=== PATIENT | female | born 1990 | race Caucasian/White ===

== ENCOUNTER 2018-04-10 06:57 | Inpatient (IN) | payer BC ==
[2018-04-10] MEDS ORDERED: Sodium Chloride 0.9% 10 ML Syringe FLUSH PRN (07:13)
[2018-04-10] MEDS ORDERED: Ampicillin 2 GM in Sodium Chloride 0.9% 100 ML IV ONE (07:31)
[2018-04-10] MEDS ORDERED: Oxytocin/Lactated Ringers 10 UNIT/1,000 ML BAG IV SCH ×2 (07:45→09:45)
[2018-04-10] MEDS: Lactated Ringers 1,000 ML IV SCH ×5 (07:46→12:55)
[2018-04-10] MEDS ORDERED: Bupivacaine/fentaNYL/NS 100 ML Bag EPIDUR SCH (10:45)
[2018-04-10] MEDS ORDERED: ePHEDrine 50 MG/ML SDV IVPUSH PRN (10:45)
[2018-04-10] MEDS ORDERED: fentaNYL 100 MCG/2 ML SDV EPIDUR PRN (10:45)
[2018-04-10] MEDS ORDERED: Ondansetron 4 MG/2 ML SDV IVPUSH PRN (10:45)
[2018-04-10] MEDS ORDERED: diphenhydrAMINE 50 MG/ML SDV IVPUSH PRN (10:45)
[2018-04-10] MEDS: Ampicillin 1 GM in Sodium Chloride 0.9% 100 ML IV SCH ×2 (12:14→16:48)
--- NOTE | 2018-04-10 15:52 | PCM.SN ---
- Free Text/Narrative Note: Stage I - Presented for induction of labor. Progressed to complete with overall reassuring FHT. Epidural. Stage II - of viable female at 1532. Weight pending. APGARS 8/9. Head delivered in a controlled manner over intact perineum. body and shoulders followed without difficulty. Positive cry. Cord clamped and cut. Cord blood collected. Stage III - with gentle traction on cord placenta delivered incomplete. Calcified fragment of about half of the placenta manually extracted. Pitocin initiated. Minimal bleeding. EBL 200. No laceration
--- NOTE | 2018-04-10 18:04 | PCM.PREANE ---
Preanesthetic Assessment - Procedure Proposed Procedure: GREGORIO - Anesthesia/Transfusion/Family Hx Anesthesia History: Prior Anesthesia Without Reaction Family History of Anesthesia Reaction: No Transfusion History: No Prior Transfusion(s) - Review of Systems General: No Symptoms Pulmonary: No Symptoms Cardiovascular: No Symptoms Gastrointestinal: No Symptoms Neurological: No Symptoms Other: Reports: None - Physical Assessment NPO Status Date: 04/10/18 NPO Status Time: 10:00 O2 Sat by Pulse Oximetry: 99 Respiratory Rate: 18 Vital Signs: Last Vital Signs Temp 36.8 C 04/10/18 07:13 Pulse 98 04/10/18 07:13 Resp 18 04/10/18 07:13 BP 129/78 04/10/18 07:13 Pulse Ox 99 04/10/18 07:13 Height: 1.73 m Weight: 101.151 kg ASA Class: 2 Mental Status: Alert & Oriented x3 Airway Class: Mallampati = 1 Dentition: Reports: Normal Dentition Thyro-Mental Finger Breadths: 3 Mouth Opening Finger Breadths: 3 ROM/Head Extension: Full Lungs: Clear to Auscultation, Normal Respiratory Effort Cardiovascular: Regular Rate, Regular Rhythm - Lab Values: Laboratory Last Values WBC 11.80 K/mm3 (3.98-10.04) H 04/10/18 07:20 RBC 4.39 M/mm3 (3.98-5.22) 04/10/18 07:20 Hgb 12.1 gm/L (11.2-15.7) 04/10/18 07:20 Hct 36.6 % (34.1-44.9) 04/10/18 07:20 MCV 83.4 fl (79.4-94.8) 04/10/18 07:20 MCH 27.6 pg (25.6-32.2) 04/10/18 07:20 MCHC 33.1 g/dl (32.2-35.5) 04/10/18 07:20 RDW Std Deviation 40.0 fL (36.4-46.3) 04/10/18 07:20 Plt Count 204 K/mm3 (182-369) 04/10/18 07:20 MPV 10.3 fl (9.4-12.3) 04/10/18 07:20 RPR Non-reactive (NONREACTIVE) 04/10/18 07:20 Blood Type O POSITIVE 04/10/18 07:20 Gel Antibody Screen Negative 04/10/18 07:20 - Allergies Allergies/Adverse Reactions: Allergies Allergy/AdvReac Type Severity Reaction Status Date / Time morphine AdvReac Vomiting Verified 03/10/18 14:40 - Blood Blood Available: No Product(s) Available: None - Anesthesia Plan Pre-Op Medication Ordered: None - Acknowledgements Anesthesia Type Planned: Epidural Pt an Appropriate Candidate for the Planned Anesthesia: Yes Alternatives and Risks of Anesthesia Discussed w Pt/Guardian: Yes Pt/Guardian Understands and Agrees with Anesthesia Plan: Yes PreAnesthesia Questionnaire - Past Health History Medical/Surgical History: Denies 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: , Other (See Below) Other OB/BYN History: miscarriage and 24 week demise Other Endocrine/Metabolic History: thyroiditis associated with , now resolved, and on no medications Hematologic History: Reports: Other (See Below) Other Hematologic History: boardline anemic - Past Surgical History Musculoskeletal Surgical History: Reports: Arthroscopic Procedure - SUBSTANCE USE Smoking Status *Q: Never Smoker Recreational Drug Use History: No - HOME MEDS Home Medications: Home Meds Acetaminophen with Codeine [Tylenol with Codeine #3 Tablet] 1 - 2 each PO Q6HR PRN #24 tablet 04/08/16 [Rx] - CURRENT (IN HOUSE) MEDS Current Meds: Current Medications Ibuprofen (Motrin) 600 mg PO Q6H PRN PRN Reason: Mild pain or fever Discontinued Medications Diphenhydramine HCl (Benadryl) 25 mg IVPUSH Q6H PRN PRN Reason: Pruritis Ephedrine Sulfate (Ephedrine Sulfate) 5 mg IVPUSH ASDIRECTED PRN PRN Reason: Hypotension Last Admin: 04/10/18 12:04 Dose: 5 mg Fentanyl (Sublimaze) 100 mcg EPIDUR Q3H PRN PRN Reason: Pain Last Admin: 04/10/18 11:41 Dose: 100 mcg Fentanyl/Bupivacaine HCl (Fentanyl/Bupivacaine/Ns 2 Mcg-0.125% 100 Ml) 100 ml EPIDUR ASDIRECTED MIGUEL ÁNGEL Last Admin: 04/10/18 11:42 Dose: 100 ml Lactated Ringer's (Ringers, Lactated) 1,000 mls @ 100 mls/hr IV ASDIRECTED [facility] Last Admin: 04/10/18 12:55 Dose: 100 mls/hr Ampicillin Sodium 2 gm/ Sodium (Chloride) 100 mls @ 200 mls/hr IV ONETIME ONE Stop: 04/10/18 08:00 Last Admin: 04/10/18 07:46 Dose: 200 mls/hr Ampicillin Sodium 1 gm/ Sodium (Chloride) 100 mls @ 200 mls/hr IV Q4H MIGUEL ÁNGEL Last Admin: 04/10/18 16:48 Dose: Not Given Oxytocin/Lactated Ringer's (Pitocin In Lr 10 Units/1,000 Ml) 10 unit in 1,000 mls @ 250 mls/hr IV .CONTINUOUS MIGUEL ÁNGEL; Protocol Oxytocin/Lactated Ringer's (Pitocin In Lr 10 Units/1,000 Ml) 10 unit in 1,000 mls @ 12 mls/hr IV TITRATE MIGUEL ÁNGEL; Protocol Last Titration: 04/10/18 11:16 Dose: 0 munits/min, 0 mls/hr Ondansetron HCl (Zofran) 4 mg IVPUSH ONETIME PRN PRN Reason: Nausea/Vomiting Sodium Chloride (Saline Flush) 10 ml FLUSH ASDIRECTED PRN PRN Reason: Keep Vein Open
[2018-04-10] MEDS: Ibuprofen 600 MG Tab PO PRN (20:30)
[2018-04-10] MEDS ORDERED: Bupivacaine 0.25% 10 ML SDV ONE (22:00)
[2018-04-10] MEDS ORDERED: Benzocaine/Menthol 20%-0.5% Spray 56 GM Canister TOP ONE (22:26)
[2018-04-10] MEDS ORDERED: Lanolin 100% Cream 7 GM Tube ONE (22:26)
[2018-04-10] MEDS ORDERED: Benzocaine/Menthol 20%-0.5% Spray 56 GM Canister TOP PRN (23:44)
[2018-04-10] MEDS ORDERED: Lanolin 100% Cream 7 GM Tube TOP PRN (23:45)
[2018-04-11] MEDS: Ibuprofen 600 MG Tab PO PRN ×3 (06:11→19:52)
--- NOTE | 2018-04-11 09:07 | PCM48HPAN ---
Post Anesthesia Note - EVALUATION WITHIN 48HRS OF ANESTHETIC Vital Signs in Normal Range: Yes Patient Participated in Evaluation: Yes Respiratory Function Stable: Yes Airway Patent: Yes Cardiovascular Function Stable: Yes Hydration Status Stable: Yes Pain Control Satisfactory: Yes Nausea and Vomiting Control Satisfactory: Yes Mental Status Recovered: Yes - COMMENTS/OBSERVATIONS Free Text/Narrative:: Opal is up walking around today. She denies back pain, headache, and numbness / tingling to her legs. She did have a questionable spinal catheter placement with her epidural. I spoke with her regarding the possibility of a headache and the treatment options available.
--- NOTE | 2018-04-12 07:20 | PCM.DCSUM1 ---
Discharge Summary - Discharge Data Discharge Date: 04/12/18 Discharge Disposition: Home, Self-Care 01 Condition: Good - Patient Summary/Data Hospital Course: Unremarkable labor, delivery, and course. Discharged PPD2 - Patient Instructions Diet: Usual Diet as Tolerated Activity: No Strenuous Activities Driving: May Drive Today Driving, Other: pelvic rest Showering/Bathing: May Shower Notify Provider of: Fever, Increased Pain, Swelling and Redness, Drainage, Nausea and/or Vomiting - Discharge Plan Home Medications: Home Meds Acetaminophen with Codeine [Tylenol with Codeine #3 Tablet] 1 - 2 each PO Q6HR PRN #24 tablet 04/08/16 [Rx] Referrals: Tracey Munroe MD [Primary Care Provider] - (2-6 weeks) - Discharge Summary/Plan Comment DC Time >30 min.: No - General Info Date of Service: 04/12/18 Functional Status: Reports: Pain Controlled - Review of Systems General: Reports: No Symptoms HEENT: Reports: No Symptoms Pulmonary: Reports: No Symptoms Cardiovascular: Reports: No Symptoms Gastrointestinal: Reports: No Symptoms Genitourinary: Reports: No Symptoms Musculoskeletal: Reports: No Symptoms Skin: Reports: No Symptoms Neurological: Reports: No Symptoms Psychiatric: Reports: No Symptoms - Patient Data Vitals - Most Recent: Last Vital Signs Temp 36.7 C 04/12/18 01:56 Pulse 61 04/12/18 01:56 Resp 14 04/11/18 15:31 BP 100/73 04/12/18 01:56 Pulse Ox 98 04/12/18 01:56 Weight - Most Recent: 101.151 kg Med Orders - Current: Current Medications Benzocaine/Menthol (Dermoplast Pain Relief [place]) 0 gm TOP ASDIRECTED PRN PRN Reason: Pain Emollient Ointment (Lansinoh Hpa) 0 gm TOP ASDIRECTED PRN PRN Reason: Other Last Admin: 04/11/18 03:12 Dose: 1 tube Ibuprofen (Motrin) 600 mg PO Q6H PRN PRN Reason: Mild pain or fever Last Admin: 04/11/18 19:52 Dose: 600 mg Discontinued Medications Benzocaine/Menthol (Dermoplast Pain Relief [place]) Confirm Administered Dose 56 gm TOP .STK-MED ONE Stop: 04/10/18 22:27 Last Admin: 04/10/18 22:30 Dose: 1 canister Bupivacaine HCl (Sensorcaine-Mpf 0.25%) 10 ml .ROUTE .STK-StarGreetz ONE Stop: 04/10/18 22:01 Diphenhydramine HCl (Benadryl) 25 mg IVPUSH Q6H PRN PRN Reason: Pruritis Emollient Ointment (Lansinoh Hpa) Confirm Administered Dose 7 gm .ROUTE .[place]- Star[place]reet[place] ONE Stop: 04/10/18 22:27 Last Admin: 04/11/18 03:12 Dose: Not Given Ephedrine Sulfate (Ephedrine Sulfate) 5 mg IVPUSH ASDIRECTED PRN PRN Reason: Hypotension Last Admin: 04/10/18 12:04 Dose: 5 mg Fentanyl (Sublimaze) 100 mcg EPIDUR Q3H PRN PRN Reason: Pain Last Admin: 04/10/18 11:41 Dose: 100 mcg Fentanyl/Bupivacaine HCl (Fentanyl/Bupivacaine/Ns 2 Mcg-0.125% 100 Ml) 100 ml EPIDUR ASDIRECTED MIGUEL ÁNGEL Last Admin: 04/10/18 11:42 Dose: 100 ml Lactated Ringer's (Ringers, Lactated) 1,000 mls @ 100 mls/hr IV ASDIRECTED MIGUEL ÁNGEL Last Admin: 04/10/18 12:55 Dose: 100 mls/hr Ampicillin Sodium 2 gm/ Sodium (Chloride) 100 mls @ 200 mls/hr IV ONETIME ONE Stop: 04/10/18 08:00 Last Admin: 04/10/18 07:46 Dose: 200 mls/hr Ampicillin Sodium 1 gm/ Sodium (Chloride) 100 mls @ 200 mls/hr IV Q4H MIGUEL ÁNGEL Last Admin: 04/10/18 16:48 Dose: Not Given Oxytocin/Lactated Ringer's (Pitocin In Lr 10 Units/1,000 Ml) 10 unit in 1,000 mls @ 250 mls/hr IV .CONTINUOUS MIGUEL ÁNGEL; Protocol Oxytocin/Lactated Ringer's (Pitocin In Lr 10 Units/1,000 Ml) 10 unit in 1,000 mls @ 12 mls/hr IV TITRATE MIGUEL ÁNGEL; Protocol Last Titration: 04/10/18 11:16 Dose: 0 munits/min, 0 mls/hr Ondansetron HCl (Zofran) 4 mg IVPUSH ONETIME PRN PRN Reason: Nausea/Vomiting Sodium Chloride (Saline Flush) 10 ml FLUSH ASDIRECTED PRN PRN Reason: Keep Vein Open - Exam General: Reports: Alert, Oriented HEENT: Reports: Pupils Equal, Pupils Reactive, EOMI, Mucous Membr. Moist/[place] Neck: Reports: Supple Lungs: Reports: Clear to Auscultation, Normal Respiratory Effort Cardiovascular: Reports: Regular Rate, Regular Rhythm GI/Abdominal Exam: Normal Bowel Sounds, Soft, Non-Tender, No Organomegaly, No Distention, No Abnormal Bruit, No Mass, Pelvis Stable (Female) Exam: Normal External Exam, Normal Speculum Exam, Normal Bimanual Exam Back Exam: Reports: Normal Inspection, Full Range of Motion Extremities: Normal Inspection, Normal Range of Motion, Non-Tender, No Pedal Edema, Normal Capillary Refill Skin: Reports: Warm, Dry, Intact Wound/Incisions: Reports: Healing Well Neurological: Reports: No New Focal Deficit Psy/Mental Status: Reports: Alert, Normal Affect, Normal Mood
[2018-04-12] MEDS: Ibuprofen 600 MG Tab PO PRN (07:40)
[2018-04-12 11:07] VITALS: BP 112/59
== END 2018-04-12 10:17 | disposition home or self-care (01) | DRG 541 ==
LOC: JD.OB 06:57 → OBSVTOIN 15:32 → JD.OB 15:33
PROVIDERS: ADMIT Obstetrics & Gynecology; ATTEND Obstetrics & Gynecology
PROC: 10D17Z9 Manual Extraction of Products of Conception, Retained, Via Natural or Artificial Opening (ICD-10-PCS; principal; 2018-04-10)
PROC: 10E0XZZ Delivery of Products of Conception, External Approach (ICD-10-PCS; principal; 2018-04-10)
PROC: 00HU33Z Insertion of Infusion Device into Spinal Canal, Percutaneous Approach (ICD-10-PCS; 2018-04-10)
PROC: 3E0R3BZ Introduction of Anesthetic Agent into Spinal Canal, Percutaneous Approach (ICD-10-PCS; 2018-04-10)
DX: O72.2 Delayed and secondary postpartum hemorrhage (principal); Z37.0 Single live birth; Z3A.39 39 weeks gestation of pregnancy
CPT/HCPCS: 36415; 59025; 59409; 85027; 86592; 86850; 86900; 86901; A9270-GY; J0290; J2590; J3010; J7030; J7120

== ENCOUNTER 2019-11-17 08:11 | Inpatient (IN) | payer OTHER ==
[2019-11-17] MEDS ORDERED: Ampicillin 2 GM in Sodium Chloride 0.9% 100 ML IV ONE (11:56)
[2019-11-17] MEDS ORDERED: Ondansetron 4 MG/2 ML SDV IVPUSH PRN (11:56)
[2019-11-17] MEDS ORDERED: Nalbuphine 10 MG/ML Syringe IVPUSH PRN (11:56)
[2019-11-17] MEDS ORDERED: Sodium Chloride 0.9% 10 ML Syringe FLUSH PRN (11:56)
[2019-11-17] MEDS ORDERED: Oxytocin/Lactated Ringers 20 UNIT/1,000 ML BAG IV SCH (12:00)
[2019-11-17] MEDS: Lactated Ringers 1,000 ML IV SCH ×3 (12:28→17:33)
--- NOTE | 2019-11-17 12:44 | PCM.HP.2 ---
<Isaak Salazar - Last Filed: 11/17/19 13:52> H&P History of Present Illness - General Date of Service: 11/17/19 (initial presentation ~0930, H&P completed beginning around 1300) Admit Problem/Dx: Admission Diagnosis/Problem Admission Diagnosis/Problem Source of Information: Patient History Limitations: Reports: No Limitations - History of Present Illness Initial Comments - Free Text/Narative: Ms. Opal Hassan is a pleasant 28 yoF who is O+ and (2 girls at home, 1 lost at 27 weeks due to intrauterine demise, 1 miscarriage at 10 weeks) who presented to the ED approx around 0900 having felt some contractions. On clinic appointment (11/15/2019), patient reports being 4-5 cm dilated and 70% effacement and GBS (+). Upon initial presentation, she was escorted to L&D and an amniosure, UA w/ micro and culture and pelvic exam per RN. Amniosure was negative via lab and she measured around 4 cm dilated, 70% effaced, firm, long and vertex not appreciated by RN. Plan to re-evaluate at 1200 and pending progress, will start IV, ampicillin IV and admission process. Pending reevaluation by RN at 1200, pt was further along approx [address] Verdugo and plan will be to keep her here in L&D. Upon discussing with patient she relates the following for an HPI Ms. Hassan started noticing contractions around 0400 on 11/17/2019 and came to L &D. She reports the contractions seemed to calm down and get better but after some walking around and bouncing on the ball the patient endorses the contractions coming back. pt reports having them every 3-4 min now describing them as tightness in the front and back labor pains and getting harder. patient reports them being at a 7/10 in terms of pain right now. pt admits clear, "mucousy" discharge in addition to more than usual clear discharge originally. In previous pregnancies, she admits to having back labor pains. Pt endorses wanting an epidural. also present in the room. 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 (See Below) Other OB/BYN History: miscarriage and 24 week demise Other Endocrine/Metabolic History: thyroiditis associated with , now resolved, and on no medications Hematologic History: Reports: Other (See Below) Other Hematologic History: boardline anemic - Past Surgical History Musculoskeletal Surgical History: Reports: Arthroscopic Procedure Social & Family History - Family History Family Medical History: Noncontributory - Living Situation & Occupation Living situation: Reports: , with Family Occupation: Employed Exam - Exam General: Alert, Oriented (in no NAD) HEENT: Conjunctiva Clear, EOMI, Hearing Intact, Nares Patent, Pupils Equal, Pupils Reactive Neck: Supple, Trachea Midline Lungs: Clear to Auscultation, Normal Respiratory Effort Cardiovascular: Regular Rate, Regular Rhythm, Normal S1, Normal S2, Other (with no M,R,G on auscultation) Back Exam: Normal Inspection Extremities: Pedal Edema Skin: Warm, Dry, Intact Neuro Extensive - Mental Status: Alert, Oriented x3, Normal Mood/Affect, Normal Cognition, Memory Intact Psychiatric: Alert, Normal Affect, Normal Mood - Patient Data Lab Results Last 24 hrs: Laboratory Results - last 24 hr 11/17/19 11/17/19 Range/Units 08:35 09:10 Urine Color Light yellow (Yellow) Urine Appearance Clear (Clear) Urine pH 7.0 (5.0-8.0) Ur Specific [place] 1.015 (1.005-1.030) Urine Protein Negative (Negative) Urine Glucose (UA) Negative (Negative) Urine Ketones Negative (Negative) Urine Occult Blood Negative (Negative) Urine Nitrite Negative (Negative) Urine Bilirubin Negative (Negative) Urine Urobilinogen 0.2 (0.2-1.0) Ur Leukocyte Esterase Trace H (Negative) Urine RBC 0-5 (0-5) /hpf Urine WBC 5-10 H (0-5) /hpf Ur Squamous Epith Cells 0-5 (0-5) /hpf Urine Bacteria Few (FEW) /hpf Urine Mucus Few (FEW) /hpf Membrane Rupture Negative Result Diagrams: 11/17/19 12:57 Orders Last 24hrs: Active Orders 24 hr Category Date Time Status Patient Status [ADT] Routine ADT 11/17/19 11:56 Active Activity as Tolerated [RC] PFP Care 11/17/19 11:56 Active Communication Order [RC] ASDIRECTED Care 11/17/19 11:56 Active Heart Tones [RC] ASDIRECTED Care 11/17/19 11:56 Active Non Stress Test [RC] PER UNIT ROUTINE Care 11/17/19 08:36 Active Notify Provider [RC] PFP Care 11/17/19 11:56 Active Notify Provider [RC] PRN Care 11/17/19 11:56 Active Peripheral IV Care [RC] . DIRECTED Care 11/17/19 11:56 Active Pump Management, Intrathecal [RC] ASDIRECTED Care 11/17/19 11:58 Active Urinary Catheter Assessment [RC] ASDIRECTED Care 11/17/19 11:56 Active Vital Signs [RC] PER UNIT ROUTINE Care 11/17/19 08:36 Active Vital Signs [RC] PER UNIT ROUTINE Care 11/17/19 11:56 Active Regular Diet [DIET] Diet 11/17/19 Breakfast Active CBC WITH AUTO DIFF [HEME] Stat Lab 11/17/19 11:56 Ordered CULTURE URINE [RM] Stat Lab 11/17/19 09:10 Received RAPID PLASMA REAGIN,RPR [CHEM] Routine Lab 11/17/19 11:56 Ordered TYPE AND SCREEN [BBK] Stat Lab 11/17/19 11:56 Ordered Ampicillin 1 gm Med 11/17/19 16:00 Active Sodium Chloride 0.9% [Normal Saline] 100 ml IV Q4H Lactated Ringers [Ringers, Lactated] 1,000 ml Med 11/17/19 12:00 Active IV ASDIRECTED Nalbuphine [Nubain] Med 11/17/19 11:56 Active 10 mg IVPUSH Q2H PRN Ondansetron [Zofran] Med 11/17/19 11:56 Active 4 mg IVPUSH Q4H PRN Oxytocin/Lactated Ringers [Pitocin in LR 20 Units/1,000 Med 11/17/19 12:00 Active ML] 20 unit in 1,000 ml IV .CONTINUOUS Sodium Chloride 0.9% [Saline Flush] Med 11/17/19 11:56 Active 10 ml FLUSH ASDIRECTED PRN Electronic Heart Tones Ext w TOCO [WOMSER] Oth 11/17/19 11:56 Ordered Routine Electronic Heart Tones Internal [WOMSER] Per Unit Oth 11/17/19 11:56 Ordered Routine Peripheral IV Insertion Adult [OM.PC] Routine Oth 11/17/19 11:56 Ordered Resuscitation Status Routine Resus Stat 11/17/19 08:35 Ordered Medication Orders Lactated Ringer's (Ringers, Lactated) 1,000 mls @ 100 mls/hr IV ASDIRECTED MIGUEL ÁNGEL Last Admin: 11/17/19 12:28 Dose: 100 mls/hr Oxytocin/Lactated Ringer's (Pitocin In Lr 20 Units/1,000 Ml) 20 unit in 1,000 mls @ 500 mls/hr IV .CONTINUOUS MIGUEL ÁNGEL Ampicillin Sodium 1 gm/ Sodium (Chloride) 100 mls @ 200 mls/hr IV Q4H MIGUEL ÁNGEL Nalbuphine HCl (Nubain) 10 mg IVPUSH Q2H PRN PRN Reason: Pain Ondansetron HCl (Zofran) 4 mg IVPUSH Q4H PRN PRN Reason: Nausea/Vomiting Sodium Chloride (Saline Flush) 10 ml FLUSH ASDIRECTED PRN PRN Reason: Keep Vein Open Review of Systems (Master) - Review of Systems Constitutional: Reports: No Symptoms Eyes: Reports: other (pt admits with this noticing her vision has been worse but not affecting her actually seeing thigns, daily activites) ENT: Reports: other (deneis ears, nose discharge or pain. denies trouble swallowing, hoarseness, neck pain or decreased ROM. Pt does admit to "being on the tail end of a cold and is much better now") Respiratory: Reports: No Symptoms Cardiovascular: Reports: No Symptoms Endocrine: Reports: No Symptoms, Other (Pt admits after her first having post- thyroid issues. They were only transient and resolved several weeks post-.) GI/Abdominal: Reports: No Symptoms : Reports: No Symptoms, Other (See HPI) Musculoskeletal: Reports: No Symptoms Skin: Reports: No Symptoms Neurological: Reports: No Symptoms Psychiatric: Reports: No Symptoms Hematologic/Lymphatic: Reports: No Symptoms Immunologic: Reports: No Symptoms <Garrick Verdugo - Last Filed: 11/17/19 13:54> H&P History of Present Illness - General Admit Problem/Dx: Admission Diagnosis/Problem Admission Diagnosis/Problem H&P Review of Systems - Review of Systems: Review Of Systems: See Below General: Reports: No Symptoms HEENT: Reports: No Symptoms Pulmonary: Reports: No Symptoms Cardiovascular: Reports: No Symptoms Gastrointestinal: Reports: No Symptoms Genitourinary: Reports: No Symptoms Musculoskeletal: Reports: No Symptoms Skin: Reports: No Symptoms Psychiatric: Reports: No Symptoms Neurological: Reports: No Symptoms Hematologic/Lymphatic: Reports: No Symptoms Immunologic: Reports: No Symptoms Exam - Exam Exam: See Below - Vital Signs Vital Signs: Last Vital Signs Temp 97.7 F 11/17/19 12:57 Pulse 76 11/17/19 12:57 Resp 16 11/17/19 12:57 BP 112/69 11/17/19 12:57 Pulse Ox 100 11/17/19 12:57 - Patient Data Lab Results Last 24 hrs: Laboratory Results - last 24 hr 11/17/19 11/17/19 11/17/19 Range/Units 08:35 09:10 12:57 WBC 12.83 H (3.98-10.04) K/mm3 RBC 4.59 (3.98-5.22) M/mm3 Hgb 12.8 (11.2-15.7) gm/dl Hct 38.3 (34.1-44.9) % MCV 83.4 (79.4-94.8) fl MCH 27.9 (25.6-32.2) pg MCHC 33.4 (32.2-35.5) g/dl RDW Std Deviation 39.6 (36.4-46.3) fL Plt Count 214 (182-369) K/mm3 MPV 10.1 (9.4-12.3) fl Neut % (Auto) 74.4 H (34.0-71.1) % Lymph % (Auto) 20.6 (19.3-51.7) % [place] % (Auto) 3.4 L (4.7-12.5) % Eos % (Auto) 1.0 (0.7-5.8) Baso % (Auto) 0.2 (0.1-1.2) % Neut # (Auto) 9.56 H (1.56-6.13) K/mm3 Lymph # (Auto) 2.64 (1.18-3.74) K/mm3 [place] # (Auto) 0.43 H (0.24-0.36) K/mm3 Eos # (Auto) 0.13 (0.04-0.36) K/mm3 Baso # (Auto) 0.02 (0.01-0.08) K/mm3 Urine Color Light yellow (Yellow) Urine Appearance Clear (Clear) Urine pH 7.0 (5.0-8.0) Ur Specific [place] 1.015 (1.005-1.030) Urine Protein Negative (Negative) Urine Glucose (UA) Negative (Negative) Urine Ketones Negative (Negative) Urine Occult Blood Negative (Negative) Urine Nitrite Negative (Negative) Urine Bilirubin Negative (Negative) Urine Urobilinogen 0.2 (0.2-1.0) Ur Leukocyte Esterase Trace H (Negative) Urine RBC 0-5 (0-5) /hpf Urine WBC 5-10 H (0-5) /hpf Ur Squamous Epith Cells 0-5 (0-5) /hpf Urine Bacteria Few (FEW) /hpf Urine Mucus Few (FEW) /hpf Membrane Rupture Negative Blood Type Gel Antibody Screen 11/17/19 Range/Units 12:57 WBC (3.98-10.04) K/mm3 RBC (3.98-5.22) M/mm3 Hgb (11.2-15.7) gm/dl Hct (34.1-44.9) % MCV (79.4-94.8) fl MCH (25.6-32.2) pg MCHC (32.2-35.5) g/dl RDW Std Deviation (36.4-46.3) fL Plt Count (182-369) K/mm3 MPV (9.4-12.3) fl Neut % (Auto) (34.0-71.1) % Lymph % (Auto) (19.3-51.7) % [place] % (Auto) (4.7-12.5) % Eos % (Auto) (0.7-5.8) Baso % (Auto) (0.1-1.2) % Neut # (Auto) (1.56-6.13) K/mm3 Lymph # (Auto) (1.18-3.74) K/mm3 Drew # (Auto) (0.24-0.36) K/mm3 Eos # (Auto) (0.04-0.36) K/mm3 Baso # (Auto) (0.01-0.08) K/mm3 Urine Color (Yellow) Urine Appearance (Clear) Urine pH (5.0-8.0) Ur Specific [place] (1.005-1.030) Urine Protein (Negative) Urine Glucose (UA) (Negative) Urine Ketones (Negative) Urine Occult Blood (Negative) Urine Nitrite (Negative) Urine Bilirubin (Negative) Urine Urobilinogen (0.2-1.0) Ur Leukocyte Esterase (Negative) Urine RBC (0-5) /hpf Urine WBC (0-5) /hpf Ur Squamous Epith Cells (0-5) /hpf Urine Bacteria (FEW) /hpf Urine Mucus (FEW) /hpf Membrane Rupture Blood Type O POSITIVE Gel Antibody Screen Negative Result Diagrams: 11/17/19 12:57 Sepsis Event Note - Focused Exam Vital Signs: Vital Signs Temp Pulse Resp BP Pulse Ox 11/17/19 12:57 97.7 F 76 16 112/69 100 Date Exam was Performed: 11/17/19 Time Exam was Performed: 13:53 - Problem List (1) 38 weeks gestation of SNOMED Code(s): 23475556 ICD Code: Z3A.38 - 38 WEEKS GESTATION OF Status: Acute Current Visit: Yes (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 SNOMED Code(s): 3592535808605 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 DIRECTED Care 11/17/19 11:56 Active Pump Management, Intrathecal [RC] ASDIRECTED Care 11/17/19 11:58 Active Urinary Catheter Assessment [RC] ASDIRECTED Care 11/17/19 11:56 Active Vital Signs [RC] PER UNIT ROUTINE Care 11/17/19 08:36 Active Vital Signs [RC] PER UNIT ROUTINE Care 11/17/19 11:56 Active Regular Diet [DIET] Diet 11/17/19 Breakfast Active CULTURE URINE [RM] Stat Lab 11/17/19 09:10 Received PATIENT RETYPE [BBK] Routine Lab 11/17/19 13:21 Ordered RAPID PLASMA REAGIN,RPR [CHEM] Routine Lab 11/17/19 12:57 Received Ampicillin 1 gm Med 11/17/19 16:00 Active Sodium Chloride 0.9% [Normal Saline] 100 ml IV Q4H Lactated Ringers [Ringers, Lactated] 1,000 ml Med 11/17/19 12:00 Active IV ASDIRECTED Nalbuphine [Nubain] Med 11/17/19 11:56 Active 10 mg IVPUSH Q2H PRN Ondansetron [Zofran] Med 11/17/19 11:56 Active 4 mg IVPUSH Q4H PRN Oxytocin/Lactated Ringers [Pitocin in LR 20 Units/1,000 Med 11/17/19 12:00 Active ML] 20 unit in 1,000 ml IV .CONTINUOUS Sodium Chloride 0.9% [Saline Flush] Med 11/17/19 11:56 Active 10 ml FLUSH ASDIRECTED PRN Electronic Heart Tones Ext w TOCO [WOMSER] Oth 11/17/19 11:56 Ordered Routine Electronic Heart Tones Internal [WOMSER] Per Unit Oth 11/17/19 11:56 Ordered Routine Peripheral IV Insertion Adult [OM.PC] Routine Oth 11/17/19 11:56 Ordered Resuscitation Status Routine Resus Stat 11/17/19 08:35 Ordered Medication Orders Lactated Ringer's (Ringers, Lactated) 1,000 mls @ 100 mls/hr IV ASDIRECTED MIGUEL ÁNGEL Last Admin: 11/17/19 12:28 Dose: 100 mls/hr Oxytocin/Lactated Ringer's (Pitocin In Lr 20 Units/1,000 Ml) 20 unit in 1,000 mls @ 500 mls/hr IV .CONTINUOUS MIGUEL ÁNGEL Ampicillin Sodium 1 gm/ Sodium (Chloride) 100 mls @ 200 mls/hr IV Q4H MIGUEL ÁNGEL Nalbuphine HCl (Nubain) 10 mg IVPUSH Q2H PRN PRN Reason: Pain Ondansetron HCl (Zofran) 4 mg IVPUSH Q4H PRN PRN Reason: Nausea/Vomiting Sodium Chloride (Saline Flush) 10 ml FLUSH ASDIRECTED PRN PRN Reason: Keep Vein Open - Mortality Measure Prognosis:: Good
--- NOTE | 2019-11-17 13:55 | PCM.SN ---
- Free Text/Narrative Note: Amniotomy performed at 1335 hrs. clear fluid cervix 5 cm dilated 70% effaced soft posterior cephalic presentation -1 station category 1 heart rate before and after amniotomy.
[2019-11-17] MEDS ORDERED: diphenhydrAMINE 50 MG/ML SDV IVPUSH PRN (14:55)
[2019-11-17] MEDS ORDERED: fentaNYL/Bupivacaine/NS 2 MCG-0.125% 250 ML EPIDUR PRN (14:55)
[2019-11-17] MEDS ORDERED: fentaNYL 100 MCG/2 ML SDV EPIDUR PRN (14:55)
[2019-11-17] MEDS ORDERED: ePHEDrine 50 MG/ML SDV IVPUSH PRN (14:55)
[2019-11-17] MEDS ORDERED: Ampicillin 1 GM in Sodium Chloride 0.9% 100 ML IV SCH (16:00)
--- NOTE | 2019-11-17 16:38 | PCM.SN ---
- Free Text/Narrative Note: Epidural in place, good relief. Cervix 5-6 cm, 70%, soft, posterior, vertex -1. Cat I FHR. Good reactivity. Begin Augmentation with Pitocin.
--- NOTE | 2019-11-17 16:47 | PCM.PREANE ---
Preanesthetic Assessment - Procedure Proposed Procedure: Continuous Labor Epidural - Anesthesia/Transfusion/Family Hx Family History of Anesthesia Reaction: No Transfusion History: No Prior Transfusion(s) - Review of Systems General: No Symptoms Pulmonary: No Symptoms Cardiovascular: No Symptoms Gastrointestinal: No Symptoms Neurological: No Symptoms Other: Reports: None - Physical Assessment NPO Status Date: 11/17/19 (Full stomach) Vital Signs: Last Vital Signs Temp 36.5 C 11/17/19 12:57 Pulse 76 11/17/19 12:57 Resp 16 11/17/19 12:57 BP 112/69 11/17/19 12:57 Pulse Ox 100 11/17/19 12:57 Height: 5 ft 8 in Weight: 100.244 kg Mental Status: Alert & Oriented x3 Airway Class: Mallampati = 1 Dentition: Reports: Normal Dentition ROM/Head Extension: Full Lungs: Clear to Auscultation, Normal Respiratory Effort Cardiovascular: Regular Rate, Regular Rhythm - Lab Values: Laboratory Last Values WBC 12.83 K/mm3 (3.98-10.04) H 11/17/19 12:57 RBC 4.59 M/mm3 (3.98-5.22) 11/17/19 12:57 Hgb 12.8 gm/dl (11.2-15.7) 11/17/19 12:57 Hct 38.3 % (34.1-44.9) 11/17/19 12:57 MCV 83.4 fl (79.4-94.8) 11/17/19 12:57 MCH 27.9 pg (25.6-32.2) 11/17/19 12:57 MCHC 33.4 g/dl (32.2-35.5) 11/17/19 12:57 RDW Std Deviation 39.6 fL (36.4-46.3) 11/17/19 12:57 Plt Count 214 K/mm3 (182-369) 11/17/19 12:57 MPV 10.1 fl (9.4-12.3) 11/17/19 12:57 Neut % (Auto) 74.4 % (34.0-71.1) H 11/17/19 12:57 Lymph % (Auto) 20.6 % (19.3-51.7) 11/17/19 12:57 [place] % (Auto) 3.4 % (4.7-12.5) L 11/17/19 12:57 Eos % (Auto) 1.0 (0.7-5.8) 11/17/19 12:57 Baso % (Auto) 0.2 % (0.1-1.2) 11/17/19 12:57 Neut # (Auto) 9.56 K/mm3 (1.56-6.13) H 11/17/19 12:57 Lymph # (Auto) 2.64 K/mm3 (1.18-3.74) 11/17/19 12:57 [place] # (Auto) 0.43 K/mm3 (0.24-0.36) H 11/17/19 12:57 Eos # (Auto) 0.13 K/mm3 (0.04-0.36) 11/17/19 12:57 Baso # (Auto) 0.02 K/mm3 (0.01-0.08) 11/17/19 12:57 Urine Color Light yellow (Yellow) 11/17/19 09:10 Urine Appearance Clear (Clear) 11/17/19 09:10 Urine pH 7.0 (5.0-8.0) 11/17/19 09:10 Ur Specific [place] 1.015 (1.005-1.030) 11/17/19 09:10 Urine Protein Negative (Negative) 11/17/19 09:10 Urine Glucose (UA) Negative (Negative) 11/17/19 09:10 Urine Ketones Negative (Negative) 11/17/19 09:10 Urine Occult Blood Negative (Negative) 11/17/19 09:10 Urine Nitrite Negative (Negative) 11/17/19 09:10 Urine Bilirubin Negative (Negative) 11/17/19 09:10 Urine Urobilinogen 0.2 (0.2-1.0) 11/17/19 09:10 Ur Leukocyte Esterase Trace (Negative) H 11/17/19 09:10 Urine RBC 0-5 /hpf (0-5) 11/17/19 09:10 Urine WBC 5-10 /hpf (0-5) H 11/17/19 09:10 Ur Squamous Epith Cells 0-5 /hpf (0-5) 11/17/19 09:10 Urine Bacteria Few /hpf (FEW) 11/17/19 09:10 Urine Mucus Few /hpf (FEW) 11/17/19 09:10 Membrane Rupture Negative 11/17/19 08:35 Blood Type O POSITIVE 11/17/19 12:57 Gel Antibody Screen Negative 11/17/19 12:57 - Allergies Allergies/Adverse Reactions: Allergies Allergy/AdvReac Type Severity Reaction Status Date / Time morphine AdvReac Vomiting Verified 03/10/18 14:40 - Acknowledgements Anesthesia Type Planned: Epidural Pt an Appropriate Candidate for the Planned Anesthesia: Yes Alternatives and Risks of Anesthesia Discussed w Pt/Guardian: Yes Pt/Guardian Understands and Agrees with Anesthesia Plan: Yes PreAnesthesia Questionnaire - Past Health History Medical/Surgical History: Denies 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: , 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 (See Below) Other OB/BYN History: miscarriage and 24 week demise Other Endocrine/Metabolic History: thyroiditis associated with , now resolved, and on no medications Hematologic History: Reports: Other (See Below) Other Hematologic History: boardline anemic - Past Surgical History Musculoskeletal Surgical History: Reports: Arthroscopic Procedure - SUBSTANCE USE Smoking Status *Q: Never Smoker Second Hand Smoke Exposure: No Recreational Drug Use History: No - HOME MEDS Home Medications: Home Meds Pnv No.95/Ferrous Fum/Folic AC [ Vitamin Tablet] 1 each PO DAILY [History] - CURRENT (IN HOUSE) MEDS Current Meds: Current Medications Diphenhydramine HCl (Benadryl) 25 mg IVPUSH Q6H PRN PRN Reason: pruritis Ephedrine Sulfate (Ephedrine Sulfate) 5 mg IVPUSH ASDIRECTED PRN PRN Reason: Hypotension Fentanyl (Sublimaze) 100 mcg EPIDUR Q3H PRN PRN Reason: Pain Last Admin: 11/17/19 16:17 Dose: 100 mcg Fentanyl/Bupivacaine HCl (Fentanyl/Bupivacaine/Ns 2 Mcg-0.125% 250 Ml) 250 ml EPIDUR CONTINUOUS PRN PRN Reason: Pain Last Admin: 11/17/19 16:18 Dose: 250 ml Lactated Ringer's (Ringers, Lactated) 1,000 mls @ 100 mls/hr IV ASDIRECTED MIGUEL ÁNGEL Last Admin: 11/17/19 16:17 Dose: 999 mls/hr Oxytocin/Lactated Ringer's (Pitocin In Lr 20 Units/1,000 Ml) 20 unit in 1,000 mls @ 500 mls/hr IV .CONTINUOUS MIGUEL ÁNGEL Ampicillin Sodium 1 gm/ Sodium (Chloride) 100 mls @ 200 mls/hr IV Q4H MIGUEL ÁNGEL Last Admin: 11/17/19 16:17 Dose: 200 mls/hr Nalbuphine HCl (Nubain) 10 mg IVPUSH Q2H PRN PRN Reason: Pain Ondansetron HCl (Zofran) 4 mg IVPUSH Q4H PRN PRN Reason: Nausea/Vomiting Sodium Chloride (Saline Flush) 10 ml FLUSH ASDIRECTED PRN PRN Reason: Keep Vein Open Discontinued Medications Ampicillin Sodium 2 gm/ Sodium (Chloride) 100 mls @ 200 mls/hr IV ONETIME ONE Stop: 11/17/19 12:25 Last Admin: 11/17/19 12:29 Dose: 200 mls/hr
--- NOTE | 2019-11-17 16:53 | PCM.SN ---
- Free Text/Narrative Note: Patient still having low back pain despite epidural. Dosed with 10 mL 0.25% marcaine and 100 mcg fentanyl in divided doses via the epidural catheter. Positioned EDMAR. Also increased rate from 10 mL/hour to 12 mL/hour. Re-educated patient about use of PCEA. Patient verbalizes understanding. Reassessed after 20 minutes and patient is now comfortable.
[2019-11-17] MEDS ORDERED: Oxytocin/Lactated Ringers 10 UNIT/1,000 ML BAG IV SCH (17:00)
[2019-11-17] MEDS ORDERED: Bupivacaine 0.25% 10 ML SDV ONE (19:00)
--- NOTE | 2019-11-17 19:03 | PCM.DEL ---
L & D Note - General Info Date of Service: 11/17/19 Mother's Due Date: 12/01/19 - Delivery Note Labor: Spontaneous, Augmented by ARM, Augmented by Oxytocin Delivery Outcome: Livebirth (Female liveborn 1840 hrs. Tuesday11/17/2019 left occiput anterior under epidural anesthesia over no episiotomy and no laceration Apgars 8/8 at one and 5 minutes respectively 2760 g/6 pounds 1 ounce) Delivery Method: Spontaneous Vaginal Delivery-Single Infant Delivery Mode: Spontaneous Presentation: Left Occiput Anterior (EILEEN) Nuchal Cord: None Prep: Povidone-Iodine (Betadine Anesthesia Type: Combined Spinal Epidural Amniotic Fluid Description: Clear Episiotomy Type: None Laceration: None Placenta: Intact, Spontaneous (1842 hrs. Tuesday11/17/2025 eccentric cord insertion) Cord: 3 Vessels Estimated Blood Loss: 250 Resuscitation Needed: No : Suctioned, Bulb Syringe, Stimulated, Warmed, [place] Used, Warmer Used Provider: Garrick Verdugo Score 1 min: 8 Score 5 min: 8 - General Info Date of Service: 11/17/19 Functional Status: Reports: Pain Controlled - Review of Systems General: Reports: No Symptoms HEENT: Reports: No Symptoms Pulmonary: Reports: No Symptoms Cardiovascular: Reports: No Symptoms Gastrointestinal: Reports: No Symptoms Genitourinary: Reports: No Symptoms Musculoskeletal: Reports: No Symptoms Skin: Reports: No Symptoms Neurological: Reports: No Symptoms Psychiatric: Reports: No Symptoms - Patient Data Vitals - Most Recent: Last Vital Signs Temp 97.7 F 11/17/19 12:57 Pulse 76 11/17/19 12:57 Resp 16 11/17/19 12:57 BP 112/69 11/17/19 12:57 Pulse Ox 100 11/17/19 12:57 Weight - Most Recent: 221 lb I&O - Last 24 Hours: Intake & Output 11/17/19 11/17/19 11/17/19 06:59 14:59 22:59 Intake Total 120 Balance 120 Lab Results Last 24 Hours: Laboratory Results - last 24 hr 11/17/19 11/17/19 11/17/19 Range/Units 08:35 09:10 12:57 WBC 12.83 H (3.98-10.04) K/mm3 RBC 4.59 (3.98-5.22) M/mm3 Hgb 12.8 (11.2-15.7) gm/dl Hct 38.3 (34.1-44.9) % MCV 83.4 (79.4-94.8) fl MCH 27.9 (25.6-32.2) pg MCHC 33.4 (32.2-35.5) g/dl RDW Std Deviation 39.6 (36.4-46.3) fL Plt Count 214 (182-369) K/mm3 MPV 10.1 (9.4-12.3) fl Neut % (Auto) 74.4 H (34.0-71.1) % Lymph % (Auto) 20.6 (19.3-51.7) % [place] % (Auto) 3.4 L (4.7-12.5) % Eos % (Auto) 1.0 (0.7-5.8) Baso % (Auto) 0.2 (0.1-1.2) % Neut # (Auto) 9.56 H (1.56-6.13) K/mm3 Lymph # (Auto) 2.64 (1.18-3.74) K/mm3 [place] # (Auto) 0.43 H (0.24-0.36) K/mm3 Eos # (Auto) 0.13 (0.04-0.36) K/mm3 Baso # (Auto) 0.02 (0.01-0.08) K/mm3 Urine Color Light yellow (Yellow) Urine Appearance Clear (Clear) Urine pH 7.0 (5.0-8.0) Ur Specific [place] 1.015 (1.005-1.030) Urine Protein Negative (Negative) Urine Glucose (UA) Negative (Negative) Urine Ketones Negative (Negative) Urine Occult Blood Negative (Negative) Urine Nitrite Negative (Negative) Urine Bilirubin Negative (Negative) Urine Urobilinogen 0.2 (0.2-1.0) Ur Leukocyte Esterase Trace H (Negative) Urine RBC 0-5 (0-5) /hpf Urine WBC 5-10 H (0-5) /hpf Ur Squamous Epith Cells 0-5 (0-5) /hpf Urine Bacteria Few (FEW) /hpf Urine Mucus Few (FEW) /hpf Membrane Rupture Negative Blood Type Gel Antibody Screen 11/17/19 Range/Units 12:57 WBC (3.98-10.04) K/mm3 RBC (3.98-5.22) M/mm3 Hgb (11.2-15.7) gm/dl Hct (34.1-44.9) % MCV (79.4-94.8) fl MCH (25.6-32.2) pg MCHC (32.2-35.5) g/dl RDW Std Deviation (36.4-46.3) fL Plt Count (182-369) K/mm3 MPV (9.4-12.3) fl Neut % (Auto) (34.0-71.1) % Lymph % (Auto) (19.3-51.7) % [place] % (Auto) (4.7-12.5) % Eos % (Auto) (0.7-5.8) Baso % (Auto) (0.1-1.2) % Neut # (Auto) (1.56-6.13) K/mm3 Lymph # (Auto) (1.18-3.74) K/mm3 [place] # (Auto) (0.24-0.36) K/mm3 Eos # (Auto) (0.04-0.36) K/mm3 Baso # (Auto) (0.01-0.08) K/mm3 Urine Color (Yellow) Urine Appearance (Clear) Urine pH (5.0-8.0) Ur Specific [place] (1.005-1.030) Urine Protein (Negative) Urine Glucose (UA) (Negative) Urine Ketones (Negative) Urine Occult Blood (Negative) Urine Nitrite (Negative) Urine Bilirubin (Negative) Urine Urobilinogen (0.2-1.0) Ur Leukocyte Esterase (Negative) Urine RBC (0-5) /hpf Urine WBC (0-5) /hpf Ur Squamous Epith Cells (0-5) /hpf Urine Bacteria (FEW) /hpf Urine Mucus (FEW) /hpf Membrane Rupture Blood Type O POSITIVE Gel Antibody Screen Negative Med Orders - Current: Current Medications Diphenhydramine HCl (Benadryl) 25 mg IVPUSH Q6H PRN PRN Reason: pruritis Ephedrine Sulfate (Ephedrine Sulfate) 5 mg IVPUSH ASDIRECTED PRN PRN Reason: Hypotension Fentanyl (Sublimaze) 100 mcg EPIDUR Q3H PRN PRN Reason: Pain Last Admin: 11/17/19 16:17 Dose: 100 mcg Fentanyl/Bupivacaine HCl (Fentanyl/Bupivacaine/Ns 2 Mcg-0.125% 250 Ml) 250 ml EPIDUR CONTINUOUS PRN PRN Reason: Pain Last Admin: 11/17/19 16:18 Dose: 250 ml Lactated Ringer's (Ringers, Lactated) 1,000 mls @ 100 mls/hr IV ASDIRECTED MIGUEL ÁNGEL Last Admin: 11/17/19 17:33 Dose: 999 mls/hr Oxytocin/Lactated Ringer's (Pitocin In Lr 20 Units/1,000 Ml) 20 unit in 1,000 mls @ 500 mls/hr IV .CONTINUOUS MIGUEL ÁNGEL Ampicillin Sodium 1 gm/ Sodium (Chloride) 100 mls @ 200 mls/hr IV Q4H MIGUEL ÁNGEL Last Admin: 11/17/19 16:17 Dose: 200 mls/hr Oxytocin/Lactated Ringer's (Pitocin In Lr 10 Units/1,000 Ml) 10 unit in 1,000 mls @ 12 mls/hr IV TITRATE MIGUEL ÁNGEL; Protocol Last Titration: 11/17/19 17:40 Dose: 4 munits/min, 24 mls/hr Nalbuphine HCl (Nubain) 10 mg IVPUSH Q2H PRN PRN Reason: Pain Ondansetron HCl (Zofran) 4 mg IVPUSH Q4H PRN PRN Reason: Nausea/Vomiting Sodium Chloride (Saline Flush) 10 ml FLUSH ASDIRECTED PRN PRN Reason: Keep Vein Open Discontinued Medications Ampicillin Sodium 2 gm/ Sodium (Chloride) 100 mls @ 200 mls/hr IV ONETIME ONE Stop: 11/17/19 12:25 Last Admin: 11/17/19 12:29 Dose: 200 mls/hr - Exam General: Alert, Oriented HEENT: Pupils Equal, Mucous Membr. 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 OF GROUP B STREPTOCOCCUS Status: Acute Current Visit: Yes (3) Encounter for full-term uncomplicated delivery SNOMED Code(s): 796107406 Code(s): O80 - ENCOUNTER FOR FULL-TERM UNCOMPLICATED DELIVERY Status: Acute Current Visit: Yes - Problem List Review Problem List Initiated/Reviewed/Updated: No - My Orders Last 24 Hours: My Active Orders 11/17/19 08:35 Resuscitation Status Routine 11/17/19 08:36 Non Stress Test [RC] PER UNIT ROUTINE Vital Signs [RC] PER UNIT ROUTINE 11/17/19 09:10 CULTURE URINE [RM] Stat 11/17/19 11:56 Patient Status [ADT] Routine Activity as Tolerated [RC] PFP Communication Order [RC] ASDIRECTED Heart Tones [RC] ASDIRECTED Notify Provider [RC] PFP Notify Provider [RC] PRN Peripheral IV Care [RC] . DIRECTED Urinary Catheter Assessment [RC] ASDIRECTED Vital Signs [RC] PER UNIT ROUTINE Nalbuphine [Nubain] 10 mg IVPUSH Q2H PRN Ondansetron [Zofran] 4 mg IVPUSH Q4H PRN Sodium Chloride 0.9% [Saline Flush] 10 ml FLUSH ASDIRECTED PRN Electronic Heart Tones Ext w TOCO [WOMSER] Routine Electronic Heart Tones Internal [WOMSER] Per Unit Routine Peripheral IV Insertion Adult [OM.PC] Routine 11/17/19 11:58 Pump Management, Intrathecal [RC] ASDIRECTED 11/17/19 12:00 Lactated Ringers [Ringers, Lactated] 1,000 ml IV ASDIRECTED Oxytocin/Lactated Ringers [Pitocin in LR 20 Units/1,000 ML] 20 unit in 1,000 ml IV .CONTINUOUS 11/17/19 12:57 RAPID PLASMA REAGIN,RPR [CHEM] Routine 11/17/19 16:00 Ampicillin 1 gm Sodium Chloride 0.9% [Normal Saline] 100 ml IV Q4H 11/17/19 17:00 Oxytocin/Lactated Ringers [Pitocin in LR 10 Units/1,000 ML] 10 unit in 1,000 ml IV TITRATE 11/17/19 Breakfast Regular Diet [DIET]
[2019-11-17] MEDS ORDERED: Docusate Sodium 100 MG Cap PO PRN (19:28)
[2019-11-17] MEDS ORDERED: Benzocaine/Menthol 20%-0.5% Spray 56 GM Canister TOP PRN (19:28)
[2019-11-17] MEDS ORDERED: Witch Hazel Medicated Pads 40/Jar TOP PRN (19:28)
[2019-11-17] MEDS ORDERED: Acetaminophen 325 MG Tab PO PRN (19:28)
[2019-11-17] MEDS: Ibuprofen 600 MG Tab PO PRN (19:53)
[2019-11-18] MEDS: Ibuprofen 600 MG Tab PO PRN ×4 (03:23→20:41)
--- NOTE | 2019-11-18 10:10 | PCM.DCSUM1 ---
Discharge Summary - Hospital Course Free Text/Narrative:: [facility] LIVE L/D Delivery Note Patient Name: SENTHIL MENDOZA Date of : 89 Patient Status: Inpatient Attending Provider: Garrick Verdugo Date: 11/17/19 18:57 Initialization Date: 11/17/19 18:57 L & D Note - General Info Date of Service: 11/17/19 Mother's Due Date: 12/01/19 - Delivery Note Labor: Spontaneous, Augmented by ARM, Augmented by Oxytocin Delivery Outcome: Livebirth (Female liveborn 1840 hrs. Tuesday11/17/2019 left occiput anterior under epidural anesthesia over no episiotomy and no laceration Apgars 8/8 at one and 5 minutes respectively 2760 g/6 pounds 1 ounce) Delivery Method: Spontaneous Vaginal Delivery-Single Infant Delivery Mode: Spontaneous Presentation: Left Occiput Anterior (EILEEN) Nuchal Cord: None Prep: Povidone-Iodine (Betadine Anesthesia Type: Combined Spinal Epidural Amniotic Fluid Description: Clear Episiotomy Type: None Laceration: None Placenta: Intact, Spontaneous (1842 hrs. Tuesday11/17/2025 eccentric cord insertion) Cord: 3 Vessels Estimated Blood Loss: 250 Resuscitation Needed: No : Suctioned, Bulb Syringe, Stimulated, Warmed, Argos Used, Warmer Used Provider: Garrick Verdugo Score 1 min: 8 Score 5 min: 8 - General Info Date of Service: 11/17/19 Functional Status: Reports: Pain Controlled - Review of Systems General: Reports: No Symptoms HEENT: Reports: No Symptoms Pulmonary: Reports: No Symptoms Cardiovascular: Reports: No Symptoms Gastrointestinal: Reports: No Symptoms Genitourinary: Reports: No Symptoms Musculoskeletal: Reports: No Symptoms Skin: Reports: No Symptoms Neurological: Reports: No Symptoms Psychiatric: Reports: No Symptoms - Patient Data Vitals - Most Recent: Last Vital Signs Temp 97.7 F 11/17/19 12:57 Pulse 76 11/17/19 12:57 Resp 16 11/17/19 12:57 BP 112/69 11/17/19 12:57 Pulse Ox 100 11/17/19 12:57 Weight - Most Recent: 221 lb I&O - Last 24 Hours: Intake & Output 11/17/19 11/17/19 11/17/19 06:59 14:59 22:59 Intake Total 120 Balance 120 Lab Results Last 24 Hours: Laboratory Results - last 24 hr 11/17/19 11/17/19 11/17/19 Range/Units 08:35 09:10 12:57 WBC 12.83 H (3.98-10.04) K/mm3 RBC 4.59 (3.98-5.22) M/mm3 Hgb 12.8 (11.2-15.7) gm/dl Hct 38.3 (34.1-44.9) % MCV 83.4 (79.4-94.8) fl MCH 27.9 (25.6-32.2) pg MCHC 33.4 (32.2-35.5) g/dl RDW Std Deviation 39.6 (36.4-46.3) fL Plt Count 214 (182-369) K/mm3 MPV 10.1 (9.4-12.3) fl Neut % (Auto) 74.4 H (34.0-71.1) % Lymph % (Auto) 20.6 (19.3-51.7) % [place] % (Auto) 3.4 L (4.7-12.5) % Eos % (Auto) 1.0 (0.7-5.8) Baso % (Auto) 0.2 (0.1-1.2) % Neut # (Auto) 9.56 H (1.56-6.13) K/mm3 Lymph # (Auto) 2.64 (1.18-3.74) K/mm3 [place] # (Auto) 0.43 H (0.24-0.36) K/mm3 Eos # (Auto) 0.13 (0.04-0.36) K/mm3 Baso # (Auto) 0.02 (0.01-0.08) K/mm3 Urine Color Light yellow (Yellow) Urine Appearance Clear (Clear) Urine pH 7.0 (5.0-8.0) Ur Specific Black 1.015 (1.005-1.030) Urine Protein Negative (Negative) Urine Glucose (UA) Negative (Negative) Urine Ketones Negative (Negative) Urine Occult Blood Negative (Negative) Urine Nitrite Negative (Negative) Urine Bilirubin Negative (Negative) Urine Urobilinogen 0.2 (0.2-1.0) Ur Leukocyte Esterase Trace H (Negative) Urine RBC 0-5 (0-5) /hpf Urine WBC 5-10 H (0-5) /hpf Ur Squamous Epith Cells 0-5 (0-5) /hpf Urine Bacteria Few (FEW) /hpf Urine Mucus Few (FEW) /hpf Membrane Rupture Negative Blood Type Gel Antibody Screen 11/17/19 Range/Units 12:57 WBC (3.98-10.04) K/mm3 RBC (3.98-5.22) M/mm3 Hgb (11.2-15.7) gm/dl Hct (34.1-44.9) % MCV (79.4-94.8) fl MCH (25.6-32.2) pg MCHC (32.2-35.5) g/dl RDW Std Deviation (36.4-46.3) fL Plt Count (182-369) K/mm3 MPV (9.4-12.3) fl Neut % (Auto) (34.0-71.1) % Lymph % (Auto) (19.3-51.7) % [place] % (Auto) (4.7-12.5) % Eos % (Auto) (0.7-5.8) Baso % (Auto) (0.1-1.2) % Neut # (Auto) (1.56-6.13) K/mm3 Lymph # (Auto) (1.18-3.74) K/mm3 [place] # (Auto) (0.24-0.36) K/mm3 Eos # (Auto) (0.04-0.36) K/mm3 Baso # (Auto) (0.01-0.08) K/mm3 Urine Color (Yellow) Urine Appearance (Clear) Urine pH (5.0-8.0) Ur Specific Black (1.005-1.030) Urine Protein (Negative) Urine Glucose (UA) (Negative) Urine Ketones (Negative) Urine Occult Blood (Negative) Urine Nitrite (Negative) Urine Bilirubin (Negative) Urine Urobilinogen (0.2-1.0) Ur Leukocyte Esterase (Negative) Urine RBC (0-5) /hpf Urine WBC (0-5) /hpf Ur Squamous Epith Cells (0-5) /hpf Urine Bacteria (FEW) /hpf Urine Mucus (FEW) /hpf Membrane Rupture Blood Type O POSITIVE Gel Antibody Screen Negative Med Orders - Current: Current Medications Diphenhydramine HCl (Benadryl) 25 mg IVPUSH Q6H PRN PRN Reason: pruritis Ephedrine Sulfate (Ephedrine Sulfate) 5 mg IVPUSH ASDIRECTED PRN PRN Reason: Hypotension Fentanyl (Sublimaze) 100 mcg EPIDUR Q3H PRN PRN Reason: Pain Last Admin: 11/17/19 16:17 Dose: 100 mcg Fentanyl/Bupivacaine HCl (Fentanyl/Bupivacaine/Ns 2 Mcg-0.125% 250 Ml) 250 ml EPIDUR CONTINUOUS PRN PRN Reason: Pain Last Admin: 11/17/19 16:18 Dose: 250 ml Lactated Ringer's (Ringers, Lactated) 1,000 mls @ 100 mls/hr IV ASDIRECTED MIGUEL ÁNGEL Last Admin: 11/17/19 17:33 Dose: 999 mls/hr Oxytocin/Lactated Ringer's (Pitocin In Lr 20 Units/1,000 Ml) 20 unit in 1,000 mls @ 500 mls/hr IV .CONTINUOUS MIGUEL ÁNGEL Ampicillin Sodium 1 gm/ Sodium (Chloride) 100 mls @ 200 mls/hr IV Q4H MIGUEL ÁNGEL Last Admin: 11/17/19 16:17 Dose: 200 mls/hr Oxytocin/Lactated Ringer's (Pitocin In Lr 10 Units/1,000 Ml) 10 unit in 1,000 mls @ 12 mls/hr IV TITRATE MIGUEL ÁNGEL; Protocol Last Titration: 11/17/19 17:40 Dose: 4 munits/min, 24 mls/hr Nalbuphine HCl (Nubain) 10 mg IVPUSH Q2H PRN PRN Reason: Pain Ondansetron HCl (Zofran) 4 mg IVPUSH Q4H PRN PRN Reason: Nausea/Vomiting Sodium Chloride (Saline Flush) 10 ml FLUSH ASDIRECTED PRN PRN Reason: Keep Vein Open Discontinued Medications Ampicillin Sodium 2 gm/ Sodium (Chloride) 100 mls @ 200 mls/hr IV ONETIME ONE Stop: 11/17/19 12:25 Last Admin: 11/17/19 12:29 Dose: 200 mls/hr - Exam General: Alert, Oriented HEENT: Pupils Equal, Mucous Membr. Moist/[place] Neck: Supple (Female) Exam: Normal External Exam Extremities: Normal Inspection, Non-Tender, No Pedal Edema, Normal Capillary Refill Skin: Warm, Dry, Intact Psy/Mental Status: Alert, Normal Affect, Normal Mood - Problem List & Annotations (1) 38 weeks gestation of SNOMED Code(s): 55760127 Code(s): Z3A.38 - 38 WEEKS GESTATION OF Status: Acute Current Visit: Yes (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 SNOMED Code(s): 1740086414130 Code(s): Z22.330 - CARRIER OF GROUP B STREPTOCOCCUS Status: Acute Current Visit: Yes (3) Encounter for full-term uncomplicated delivery SNOMED Code(s): 782569337 Code(s): O80 - ENCOUNTER FOR FULL-TERM UNCOMPLICATED DELIVERY Status: Acute Current Visit: Yes - Problem List Review Problem List Initiated/Reviewed/Updated: No - My Orders Last 24 Hours: My Active Orders 11/17/19 08:35 Resuscitation Status Routine 11/17/19 08:36 Non Stress Test [RC] PER UNIT ROUTINE Vital Signs [RC] PER UNIT ROUTINE 11/17/19 09:10 CULTURE URINE [RM] Stat 11/17/19 11:56 Patient Status [ADT] Routine Activity as Tolerated [RC] PFP Communication Order [RC] ASDIRECTED Heart Tones [RC] ASDIRECTED Notify Provider [RC] PFP Notify Provider [RC] PRN Peripheral IV Care [RC] . DIRECTED Urinary Catheter Assessment [RC] ASDIRECTED Vital Signs [RC] PER UNIT ROUTINE Nalbuphine [Nubain] 10 mg IVPUSH Q2H PRN Ondansetron [Zofran] 4 mg IVPUSH Q4H PRN Sodium Chloride 0.9% [Saline Flush] 10 ml FLUSH ASDIRECTED PRN Electronic Heart Tones Ext w TOCO [WOMSER] Routine Electronic Heart Tones Internal [WOMSER] Per Unit Routine Peripheral IV Insertion Adult [OM.PC] Routine 11/17/19 11:58 Pump Management, Intrathecal [RC] ASDIRECTED 11/17/19 12:00 Lactated Ringers [Ringers, Lactated] 1,000 ml IV ASDIRECTED Oxytocin/Lactated Ringers [Pitocin in LR 20 Units/1,000 ML] 20 unit in 1,000 ml IV .CONTINUOUS 11/17/19 12:57 RAPID PLASMA REAGIN,RPR [CHEM] Routine 11/17/19 16:00 Ampicillin 1 gm Sodium Chloride 0.9% [Normal Saline] 100 ml IV Q4H 11/17/19 17:00 Oxytocin/Lactated Ringers [Pitocin in LR 10 Units/1,000 ML] 10 unit in 1,000 ml IV TITRATE 11/17/19 Breakfast Regular Diet [DIET] HPI Initial Comments: [facility] LIVE L/D Delivery Note Patient Name: SENTHIL MENDOZA Date of : 89 Patient Status: Inpatient Attending Provider: Garrick Verdugo Date: 11/17/19 18:57 Initialization Date: 11/17/19 18:57 L & D Note - General Info Date of Service: 11/17/19 Mother's Due Date: 12/01/19 - Delivery Note Labor: Spontaneous, Augmented by ARM, Augmented by Oxytocin Delivery Outcome: Livebirth (Female liveborn 1840 hrs. Tuesday11/17/2019 left occiput anterior under epidural anesthesia over no episiotomy and no laceration Apgars 8/8 at one and 5 minutes respectively 2760 g/6 pounds 1 ounce) Infant Delivery Method: Spontaneous Vaginal Delivery-Single Delivery Mode: Spontaneous Presentation: Left Occiput Anterior (EILEEN) Nuchal Cord: None Prep: Povidone-Iodine (Betadine Anesthesia Type: Combined Spinal Epidural Amniotic Fluid Description: Clear Episiotomy Type: None Laceration: None Placenta: Intact, Spontaneous (1842 hrs. Tuesday11/17/2025 eccentric cord insertion) Cord: 3 Vessels Estimated Blood Loss: 250 Resuscitation Needed: No Benezett: Suctioned, Bulb Syringe, Stimulated, Warmed, Argos Used, Warmer Used Provider: Garrick Verdugo Score 1 min: 8 Score 5 min: 8 - General Info Date of Service: 11/17/19 Functional Status: Reports: Pain Controlled - Review of Systems General: Reports: No Symptoms HEENT: Reports: No Symptoms Pulmonary: Reports: No Symptoms Cardiovascular: Reports: No Symptoms Gastrointestinal: Reports: No Symptoms Genitourinary: Reports: No Symptoms Musculoskeletal: Reports: No Symptoms Skin: Reports: No Symptoms Neurological: Reports: No Symptoms Psychiatric: Reports: No Symptoms - Patient Data Vitals - Most Recent: Last Vital Signs Temp 97.7 F 11/17/19 12:57 Pulse 76 11/17/19 12:57 Resp 16 11/17/19 12:57 BP 112/69 11/17/19 12:57 Pulse Ox 100 11/17/19 12:57 Weight - Most Recent: 221 lb I&O - Last 24 Hours: Intake & Output 11/17/19 11/17/19 11/17/19 06:59 14:59 22:59 Intake Total 120 Balance 120 Lab Results Last 24 Hours: Laboratory Results - last 24 hr 11/17/19 11/17/19 11/17/19 Range/Units 08:35 09:10 12:57 WBC 12.83 H (3.98-10.04) K/mm3 RBC 4.59 (3.98-5.22) M/mm3 Hgb 12.8 (11.2-15.7) gm/dl Hct 38.3 (34.1-44.9) % MCV 83.4 (79.4-94.8) fl MCH 27.9 (25.6-32.2) pg MCHC 33.4 (32.2-35.5) g/dl RDW Std Deviation 39.6 (36.4-46.3) fL Plt Count 214 (182-369) K/mm3 MPV 10.1 (9.4-12.3) fl Neut % (Auto) 74.4 H (34.0-71.1) % Lymph % (Auto) 20.6 (19.3-51.7) % [place] % (Auto) 3.4 L (4.7-12.5) % Eos % (Auto) 1.0 (0.7-5.8) Baso % (Auto) 0.2 (0.1-1.2) % Neut # (Auto) 9.56 H (1.56-6.13) K/mm3 Lymph # (Auto) 2.64 (1.18-3.74) K/mm3 [place] # (Auto) 0.43 H (0.24-0.36) K/mm3 Eos # (Auto) 0.13 (0.04-0.36) K/mm3 Baso # (Auto) 0.02 (0.01-0.08) K/mm3 Urine Color Light yellow (Yellow) Urine Appearance Clear (Clear) Urine pH 7.0 (5.0-8.0) Ur Specific Black 1.015 (1.005-1.030) Urine Protein Negative (Negative) Urine Glucose (UA) Negative (Negative) Urine Ketones Negative (Negative) Urine Occult Blood Negative (Negative) Urine Nitrite Negative (Negative) Urine Bilirubin Negative (Negative) Urine Urobilinogen 0.2 (0.2-1.0) Ur Leukocyte Esterase Trace H (Negative) Urine RBC 0-5 (0-5) /hpf Urine WBC 5-10 H (0-5) /hpf Ur Squamous Epith Cells 0-5 (0-5) /hpf Urine Bacteria Few (FEW) /hpf Urine Mucus Few (FEW) /hpf Membrane Rupture Negative Blood Type Gel Antibody Screen 11/17/19 Range/Units 12:57 WBC (3.98-10.04) K/mm3 RBC (3.98-5.22) M/mm3 Hgb (11.2-15.7) gm/dl Hct (34.1-44.9) % MCV (79.4-94.8) fl MCH (25.6-32.2) pg MCHC (32.2-35.5) g/dl RDW Std Deviation (36.4-46.3) fL Plt Count (182-369) K/mm3 MPV (9.4-12.3) fl Neut % (Auto) (34.0-71.1) % Lymph % (Auto) (19.3-51.7) % [place] % (Auto) (4.7-12.5) % Eos % (Auto) (0.7-5.8) Baso % (Auto) (0.1-1.2) % Neut # (Auto) (1.56-6.13) K/mm3 Lymph # (Auto) (1.18-3.74) K/mm3 [place] # (Auto) (0.24-0.36) K/mm3 Eos # (Auto) (0.04-0.36) K/mm3 Baso # (Auto) (0.01-0.08) K/mm3 Urine Color (Yellow) Urine Appearance (Clear) Urine pH (5.0-8.0) Ur Specific Black (1.005-1.030) Urine Protein (Negative) Urine Glucose (UA) (Negative) Urine Ketones (Negative) Urine Occult Blood (Negative) Urine Nitrite (Negative) Urine Bilirubin (Negative) Urine Urobilinogen (0.2-1.0) Ur Leukocyte Esterase (Negative) Urine RBC (0-5) /hpf Urine WBC (0-5) /hpf Ur Squamous Epith Cells (0-5) /hpf Urine Bacteria (FEW) /hpf Urine Mucus (FEW) /hpf Membrane Rupture Blood Type O POSITIVE Gel Antibody Screen Negative Med Orders - Current: Current Medications Diphenhydramine HCl (Benadryl) 25 mg IVPUSH Q6H PRN PRN Reason: pruritis Ephedrine Sulfate (Ephedrine Sulfate) 5 mg IVPUSH ASDIRECTED PRN PRN Reason: Hypotension Fentanyl (Sublimaze) 100 mcg EPIDUR Q3H PRN PRN Reason: Pain Last Admin: 11/17/19 16:17 Dose: 100 mcg Fentanyl/Bupivacaine HCl (Fentanyl/Bupivacaine/Ns 2 Mcg-0.125% 250 Ml) 250 ml EPIDUR CONTINUOUS PRN PRN Reason: Pain Last Admin: 11/17/19 16:18 Dose: 250 ml Lactated Ringer's (Ringers, Lactated) 1,000 mls @ 100 mls/hr IV ASDIRECTED MIGUEL ÁNGEL Last Admin: 11/17/19 17:33 Dose: 999 mls/hr Oxytocin/Lactated Ringer's (Pitocin In Lr 20 Units/1,000 Ml) 20 unit in 1,000 mls @ 500 mls/hr IV .CONTINUOUS MIGUEL ÁNGEL Ampicillin Sodium 1 gm/ Sodium (Chloride) 100 mls @ 200 mls/hr IV Q4H MIGUEL ÁNGEL Last Admin: 11/17/19 16:17 Dose: 200 mls/hr Oxytocin/Lactated Ringer's (Pitocin In Lr 10 Units/1,000 Ml) 10 unit in 1,000 mls @ 12 mls/hr IV TITRATE MIGUEL ÁNGEL; Protocol Last Titration: 11/17/19 17:40 Dose: 4 munits/min, 24 mls/hr Nalbuphine HCl (Nubain) 10 mg IVPUSH Q2H PRN PRN Reason: Pain Ondansetron HCl (Zofran) 4 mg IVPUSH Q4H PRN PRN Reason: Nausea/Vomiting Sodium Chloride (Saline Flush) 10 ml FLUSH ASDIRECTED PRN PRN Reason: Keep Vein Open Discontinued Medications Ampicillin Sodium 2 gm/ Sodium (Chloride) 100 mls @ 200 mls/hr IV ONETIME ONE Stop: 11/17/19 12:25 Last Admin: 11/17/19 12:29 Dose: 200 mls/hr - Exam General: Alert, Oriented HEENT: Pupils Equal, Mucous Membr. Moist/[place] Neck: Supple (Female) Exam: Normal External Exam Extremities: Normal Inspection, Non-Tender, No Pedal Edema, Normal Capillary Refill Skin: Warm, Dry, Intact Psy/Mental Status: Alert, Normal Affect, Normal Mood - Problem List & Annotations (1) 38 weeks gestation of SNOMED Code(s): 22299553 Code(s): Z3A.38 - 38 WEEKS GESTATION OF Status: Acute Current Visit: Yes (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 SNOMED Code(s): 1240443467719 Code(s): Z22.330 - CARRIER OF GROUP B STREPTOCOCCUS Status: Acute Current Visit: Yes (3) Encounter for full-term uncomplicated delivery SNOMED Code(s): 859320299 Code(s): O80 - ENCOUNTER FOR FULL-TERM UNCOMPLICATED DELIVERY Status: Acute Current Visit: Yes - Problem List Review Problem List Initiated/Reviewed/Updated: No - My Orders Last 24 Hours: My Active Orders 11/17/19 08:35 Resuscitation Status Routine 11/17/19 08:36 Non Stress Test [RC] PER UNIT ROUTINE Vital Signs [RC] PER UNIT ROUTINE 11/17/19 09:10 CULTURE URINE [RM] Stat 11/17/19 11:56 Patient Status [ADT] Routine Activity as Tolerated [RC] PFP Communication Order [RC] ASDIRECTED Heart Tones [RC] ASDIRECTED Notify Provider [RC] PFP Notify Provider [RC] PRN Peripheral IV Care [RC] . DIRECTED Urinary Catheter Assessment [RC] ASDIRECTED Vital Signs [RC] PER UNIT ROUTINE Nalbuphine [Nubain] 10 mg IVPUSH Q2H PRN Ondansetron [Zofran] 4 mg IVPUSH Q4H PRN Sodium Chloride 0.9% [Saline Flush] 10 ml FLUSH ASDIRECTED PRN Electronic Heart Tones Ext w TOCO [WOMSER] Routine Electronic Heart Tones Internal [WOMSER] Per Unit Routine Peripheral IV Insertion Adult [OM.PC] Routine 11/17/19 11:58 Pump Management, Intrathecal [RC] ASDIRECTED 11/17/19 12:00 Lactated Ringers [Ringers, Lactated] 1,000 ml IV ASDIRECTED Oxytocin/Lactated Ringers [Pitocin in LR 20 Units/1,000 ML] 20 unit in 1,000 ml IV .CONTINUOUS 11/17/19 12:57 RAPID PLASMA REAGIN,RPR [CHEM] Routine 11/17/19 16:00 Ampicillin 1 gm Sodium Chloride 0.9% [Normal Saline] 100 ml IV Q4H 11/17/19 17:00 Oxytocin/Lactated Ringers [Pitocin in LR 10 Units/1,000 ML] 10 unit in 1,000 ml IV TITRATE 11/17/19 Breakfast Regular Diet [DIET] Brief History: [facility] LIVE . L/D Delivery Note. Patient Name: SENTHIL MENDOZA [facility] Record Number: [id number]. Date of : Patient Status: Inpatient. Attending Provider: Garrick Verdugo Number: [id number]. Date: 11/17/19 18:57Initialization Date: 11/17/19 18:57. L & D Note. - General Info. Date of Service: 11/17/19. Mother's Due Date: 12/01/19. - Delivery Note. Labor: Spontaneous, Augmented by ARM, Augmented by Oxytocin. Delivery Outcome: Livebirth (Female liveborn 1840 hrs. Tuesday left occiput anterior under epidural anesthesia over no episiotomy and no laceration Apgars 8/8 at one and 5 minutes respectively 2760 g/6 pounds 1 ounce) . Delivery Method: Spontaneous Vaginal Delivery-Single. Delivery Mode: Spontaneous. Presentation: Left Occiput Anterior (EILEEN). Nuchal Cord: None. Prep: Povidone-Iodine (Betadine. Anesthesia Type: Combined Spinal Epidural. Amniotic Fluid Description: Clear. Episiotomy Type: None. Laceration: None. Placenta: Intact, Spontaneous (1842 hrs. Tuesday11/17/2025 eccentric cord insertion). Cord: 3 Vessels. Estimated Blood Loss: 250. Resuscitation Needed: No. Benezett: Suctioned, Bulb Syringe, Stimulated, Warmed , [place] Used, Warmer Used. Provider: Garrick Verdugo. Score 1 min: 8. Score 5 min: 8. - General Info. Date of Service: . Functional Status: Reports: Pain Controlled. - Review of Systems. General : Reports: No Symptoms. HEENT: Reports: No Symptoms. Pulmonary: Reports: No Symptoms. Cardiovascular: Reports: No Symptoms. Gastrointestinal: Reports: No Symptoms. Genitourinary: Reports: No Symptoms. Musculoskeletal: Reports: No Symptoms. Skin: Reports: No Symptoms. Neurological: Reports: No Symptoms. Psychiatric: Reports: No Symptoms. - Patient Data. Vitals - Most Recent: Last Vital Signs. Temp 97.7 F 11/17/19 12:57. Pulse 76 11/17/19 12:57. Resp 16 11/17/19 12:57. BP 112/69 11/17/19 12:57. Pulse Ox 100 11/17/19 12: 57. Weight - Most Recent: 221 lb. I&O - Last 24 Hours: Intake & Output. 09/2001/09/2001. 06:5914:5922:59. Intake [id number]. [id number]. Lab Results Last 24 Hours: Laboratory Results - last 24 hr. 11/17/2000/09/2001Range/Units. 08:3509:1012:57. WBC 12.83 H (3.98-10.04) K/mm3. RBC 4.59 ( 3.98-5.22) M/mm3. Hgb 12.8 (11.2-15.7) gm/dl. Hct 38.3 (34.1-44.9) %. MCV 83.4 (79.4-94.8) fl. MCH 27.9 (25.6-32.2) pg. MCHC 33.4 (32.2-35.5) g/dl. RDW Std Deviation 39.6 (36.4-46.3) fL. Plt Count 214 (182-369) K/mm3. MPV 10.1 (9.4-12.3) fl. Neut % (Auto) 74.4 H (34.0-71.1) %. Lymph % (Auto) 20.6 (19.3-51.7) %. [place] % (Auto) 3.4 L (4.7-12.5) %. Eos % (Auto) 1.0 (0.7-5.8) . Baso % (Auto) 0.2 (0.1-1.2) %. Neut # (Auto) 9.56 H (1.56-6.13) K/mm3. Lymph # (Auto) 2.64 (1.18-3.74) K/mm3. [place] # (Auto) 0.43 H (0.24-0.36) K/ mm3. Eos # (Auto) 0.13 (0.04-0.36) K/mm3. Baso # (Auto) 0.02 (0.01-0.08) K/ mm3. Urine Color Light yellow (Yellow). Urine Appearance Clear (Clear). Urine pH 7.0 (5.0-8.0). Ur Specific Black 1.015 (1.005-1.030). Urine Protein Negative (Negative). Urine Glucose (UA) Negative (Negative). Urine Ketones Negative (Negative). Urine Occult Blood Negative (Negative). Urine Nitrite Negative (Negative). Urine Bilirubin Negative (Negative). Urine Urobilinogen 0.2 (0.2-1.0). Ur Leukocyte Esterase Trace H (Negative). Urine RBC 0-5 (0-5) /hpf. Urine WBC 5-10 H (0-5) /hpf. Ur Squamous Epith Cells 0- 5 (0-5) /hpf. Urine Bacteria Few (FEW) /hpf. Urine Mucus Few (FEW) /hpf. Membrane Rupture Negative. Blood Type. Gel Antibody Screen. Range/Units. 12:57. WBC (3.98-10.04) K/mm3. RBC (3.98-5.22) M/mm3. Hgb ( 11.2-15.7) gm/dl. Hct (34.1-44.9) %. MCV (79.4-94.8) fl. MCH (25.6-32.2) pg. MCHC (32.2-35.5) g/dl. RDW Std Deviation (36.4-46.3) fL. Plt Count (182 -369) K/mm3. MPV (9.4-12.3) fl. Neut % (Auto) (34.0-71.1) %. Lymph % (Auto ) (19.3-51.7) %. [place] % (Auto) (4.7-12.5) %. Eos % (Auto) (0.7-5.8). Baso % (Auto) (0.1-1.2) %. Neut # (Auto) (1.56-6.13) K/mm3. Lymph # (Auto) (1.18- 3.74) K/mm3. [place] # (Auto) (0.24-0.36) K/mm3. Eos # (Auto) (0.04-0.36) K/ mm3. Baso # (Auto) (0.01-0.08) K/mm3. Urine Color (Yellow). Urine Appearance (Clear). Urine pH (5.0-8.0). Ur Specific Black (1.005-1.030). Urine Protein (Negative). Urine Glucose (UA) (Negative). Urine Ketones ( Negative). Urine Occult Blood (Negative). Urine Nitrite (Negative). Urine Bilirubin (Negative). Urine Urobilinogen (0.2-1.0). Ur Leukocyte Esterase ( Negative). Urine RBC (0-5) /hpf. Urine WBC (0-5) /hpf. Ur Squamous Epith Cells (0-5) /hpf. Urine Bacteria (FEW) /hpf. Urine Mucus (FEW) /hpf. Membrane Rupture. Blood Type O POSITIVE. Gel Antibody Screen Negative. Med Orders - Current: Current Medications. Diphenhydramine HCl (Benadryl) 25 mg IVPUSH Q6H PRN. PRN Reason: pruritis. Ephedrine Sulfate (Ephedrine Sulfate ) 5 mg IVPUSH ASDIRECTED PRN. PRN Reason: Hypotension. Fentanyl (Sublimaze) 100 mcg EPIDUR Q3H PRN. PRN Reason: Pain. Last Admin: 11/17/19 16:17 Dose: 100 mcg. Fentanyl/Bupivacaine HCl (Fentanyl/Bupivacaine/Ns 2 Mcg-0.125% 250 Ml ) 250 ml EPIDUR CONTINUOUS PRN. PRN Reason: Pain. Last Admin: 11/17/19 16:18 Dose: 250 ml. Lactated Ringer's (Ringers, Lactated) 1,000 mls @ 100 mls/hr IV ASDIRECTED MIGUEL ÁNGEL. Last Admin: 11/17/19 17:33 Dose: 999 mls/hr. Oxytocin/ Lactated Ringer's (Pitocin In Lr 20 Units/1,000 Ml) 20 unit in 1,000 mls @ 500 mls/hr IV .CONTINUOUS MIGUEL ÁNGEL. Ampicillin Sodium 1 gm/ Sodium (Chloride) 100 mls @ 200 mls/hr IV Q4H MIGUEL ÁNGEL. Last Admin: 11/17/19 16:17 Dose: 200 mls/hr. Oxytocin/Lactated Ringer's (Pitocin In Lr 10 Units/1,000 Ml) 10 unit in 1,000 mls @ 12 mls/hr IV TITRATE MIGUEL ÁNGEL; Protocol. Last Titration: 11/17/19 17:40 Dose: 4 munits/min, 24 mls/hr. Nalbuphine HCl (Nubain) 10 mg IVPUSH Q2H PRN. PRN Reason: Pain. Ondansetron HCl (Zofran) 4 mg IVPUSH Q4H PRN. PRN Reason: Nausea/Vomiting. Sodium Chloride (Saline Flush) 10 ml FLUSH ASDIRECTED PRN. PRN Reason: Keep Vein Open. Discontinued Medications. Ampicillin Sodium 2 gm/ Sodium (Chloride) 100 mls @ 200 mls/hr IV ONETIME ONE. Stop: 11/17/19 12:25. Last Admin: 11/17/19 12:29 Dose: 200 mls/hr. - Exam. General: Alert, Oriented. HEENT: Pupils Equal, Mucous Membr. Moist/[place]. Neck: Supple. ( Female) Exam: Normal External Exam. Extremities: Normal Inspection, Non-Tender , No Pedal Edema, Normal Capillary Refill. Skin: Warm, Dry, Intact. Psy/ Mental Status: Alert, Normal Affect, Normal Mood. - Problem List & Annotations. (1) 38 weeks gestation of . SNOMED Code(s): 49214467. Code(s): Z3A.38 - 38 WEEKS GESTATION OF Status: Acute Current Visit: Yes. (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. SNOMED Code(s): 1923505917773. Code(s): Z22.330 - CARRIER OF GROUP B STREPTOCOCCUS Status: Acute Current Visit: Yes. (3) Encounter for full-term uncomplicated delivery. SNOMED Code(s): 228900234. Code(s): O80 - ENCOUNTER FOR FULL-TERM UNCOMPLICATED DELIVERY Status: Acute Current Visit: Yes. - Problem List Review. Problem List Initiated/Reviewed/ Updated: No. - My Orders. Last 24 Hours: My Active Orders. 11/17/19 08:35. Resuscitation Status Routine. 11/17/19 08:36. Non Stress Test [RC] PER UNIT ROUTINE. Vital Signs [RC] PER UNIT ROUTINE. 11/17/19 09:10. CULTURE URINE [RM] Stat. 11/17/19 11:56. Patient Status [ADT] Routine. Activity as Tolerated [RC] PFP. Communication Order [RC] ASDIRECTED. Heart Tones [RC ] ASDIRECTED. Notify Provider [RC] PFP. Notify Provider [RC] PRN. Peripheral IV Care [RC] . DIRECTED. Urinary Catheter Assessment [RC] ASDIRECTED. Vital Signs [RC] PER UNIT ROUTINE. Nalbuphine [Nubain] 10 mg IVPUSH Q2H PRN. Ondansetron [Zofran] 4 mg IVPUSH Q4H PRN. Sodium Chloride 0.9% [Saline Flush ] 10 ml FLUSH ASDIRECTED PRN. Electronic Heart Tones Ext w TOCO [WOMSER ] Routine. Electronic Heart Tones Internal [WOMSER] Per Unit Routine. Peripheral IV Insertion Adult [OM.PC] Routine. 11/17/19 11:58. Pump Management , Intrathecal [RC] ASDIRECTED. 11/17/19 12:00. Lactated Ringers [Ringers, Lactated] 1,000 ml IV ASDIRECTED. Oxytocin/Lactated Ringers [Pitocin in LR 20 Units/1,000 ML] 20 unit in 1,000 ml IV .CONTINUOUS. 11/17/19 12:57. RAPID PLASMA REAGIN,RPR [CHEM] Routine. 11/17/19 16:00. Ampicillin 1 gm Sodium Chloride 0.9% [Normal Saline] 100 ml IV Q4H. 11/17/19 17:00. Oxytocin/ Lactated Ringers [Pitocin in LR 10 Units/1,000 ML] 10 unit in 1,000 ml IV TITRATE. 11/17/19 Breakfast. 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 - CARRIER OF GROUP B STREPTOCOCCUS Status: Acute Current Visit: Yes (3) Encounter for full-term uncomplicated delivery SNOMED Code(s): 125658841 ICD Code: O80 - ENCOUNTER FOR FULL-TERM UNCOMPLICATED DELIVERY Status: Acute Current Visit: Yes - Patient Summary/Data Complications: None Consults: None Hospital Course: Uneventful - Patient Instructions Diet: Usual Diet as Tolerated Driving: Do Not Drive (48 hours) Showering/Bathing: May Shower Notify Provider of: Fever, Increased Pain, Swelling and Redness, Drainage, Nausea and/or Vomiting - Discharge Plan *PRESCRIPTION DRUG MONITORING PROGRAM REVIEWED*: Not Applicable *COPY OF PRESCRIPTION DRUG MONITORING REPORT IN PATIENT RIC: Not Applicable Home Medications: Home Meds Pnv No.95/Ferrous Fum/Folic AC [ Vitamin Tablet] 1 each PO DAILY [History] Acetaminophen [Tylenol] 650 mg PO Q6H PRN tablet 11/18/19 [Rx] Benzocaine/Menthol [Dermoplast Pain Relief Ursa] 1 spray TOP ASDIRECTED PRN canister 11/18/19 [Rx] Docusate Sodium [Colace] 100 mg PO BID PRN cap 11/18/19 [Rx] Ibuprofen [Motrin] 600 mg PO Q6H PRN tablet 11/18/19 [Rx] Witch Mone [Tucks] 1 pad TOP ASDIRECTED PRN pad 11/18/19 [Rx] Patient Handouts: Home Care Instructions for Mom Referrals: Tracey Munroe MD [Primary Care Provider] - (Call Tuesday11/19/2019 for appointment in 2-3 weeks.) - Discharge Summary/Plan Comment DC Time >30 min.: No - Patient Data Vitals - Most Recent: Last Vital Signs Temp 97.9 F 11/18/19 08:12 Pulse 78 11/18/19 08:12 Resp 16 11/18/19 08:12 BP 111/71 11/18/19 08:12 Pulse Ox 98 11/18/19 08:12 Weight - Most Recent: 221 lb I&O - Last 24 hours: Intake & Output 11/17/19 11/18/19 11/18/19 22:59 06:59 14:59 Intake Total 4320 Output Total 200 Balance 4120 Lab Results - Last 24 hrs: Laboratory Results - last 24 hr 11/17/19 11/17/19 11/18/19 Range/Units 12:57 12:57 05:20 WBC 12.83 H 12.77 H (3.98-10.04) K/mm3 RBC 4.59 4.27 (3.98-5.22) M/mm3 Hgb 12.8 11.8 (11.2-15.7) gm/dl Hct 38.3 35.7 (34.1-44.9) % MCV 83.4 83.6 (79.4-94.8) fl MCH 27.9 27.6 (25.6-32.2) pg MCHC 33.4 33.1 (32.2-35.5) g/dl RDW Std Deviation 39.6 39.3 (36.4-46.3) fL Plt Count 214 179 L (182-369) K/mm3 MPV 10.1 10.6 (9.4-12.3) fl Neut % (Auto) 74.4 H 67.8 (34.0-71.1) % Lymph % (Auto) 20.6 24.0 (19.3-51.7) % [place] % (Auto) 3.4 L 5.7 (4.7-12.5) % Eos % (Auto) 1.0 2.0 (0.7-5.8) Baso % (Auto) 0.2 0.2 (0.1-1.2) % Neut # (Auto) 9.56 H 8.65 H (1.56-6.13) K/mm3 Lymph # (Auto) 2.64 3.06 (1.18-3.74) K/mm3 [place] # (Auto) 0.43 H 0.73 H (0.24-0.36) K/mm3 Eos # (Auto) 0.13 0.26 (0.04-0.36) K/mm3 Baso # (Auto) 0.02 0.03 (0.01-0.08) K/mm3 Blood Type O POSITIVE Gel Antibody Screen Negative Med Orders - Current: Current Medications Acetaminophen (Tylenol) 650 mg PO Q4H PRN PRN Reason: mild pain or fever Benzocaine/Menthol (Dermoplast Pain Relief Ursa) 0 gm TOP ASDIRECTED PRN PRN Reason: Perineal Comfort Measure Docusate Sodium (Colace) 100 mg PO BID PRN PRN Reason: Constipation Ibuprofen (Motrin) 600 mg PO Q4H PRN PRN Reason: Mild pain or fever Last Admin: 11/18/19 08:12 Dose: 600 mg Witch Mone (Tucks) 1 pad TOP ASDIRECTED PRN PRN Reason: Perineal Comfort Measure Last Admin: 11/18/19 03:25 Dose: 1 package Discontinued Medications Bupivacaine HCl (Sensorcaine-Mpf 0.25%) 10 ml .ROUTE .STK-MED ONE Stop: 11/17/19 19:01 Diphenhydramine HCl (Benadryl) 25 mg IVPUSH Q6H PRN PRN Reason: pruritis Ephedrine Sulfate (Ephedrine Sulfate) 5 mg IVPUSH ASDIRECTED PRN PRN Reason: Hypotension Fentanyl (Sublimaze) 100 mcg EPIDUR Q3H PRN PRN Reason: Pain Last Admin: 11/17/19 16:17 Dose: 100 mcg Fentanyl/Bupivacaine HCl (Fentanyl/Bupivacaine/Ns 2 Mcg-0.125% 250 Ml) 250 ml EPIDUR CONTINUOUS PRN PRN Reason: Pain Last Admin: 11/17/19 16:18 Dose: 250 ml Ampicillin Sodium 2 gm/ Sodium (Chloride) 100 mls @ 200 mls/hr IV ONETIME ONE Stop: 11/17/19 12:25 Last Admin: 11/17/19 12:29 Dose: 200 mls/hr Lactated Ringer's (Ringers, Lactated) 1,000 mls @ 100 mls/hr IV ASDIRECTED MIGUEL ÁNGEL Last Admin: 11/17/19 17:33 Dose: 999 mls/hr Oxytocin/Lactated Ringer's (Pitocin In Lr 20 Units/1,000 Ml) 20 unit in 1,000 mls @ 500 mls/hr IV .CONTINUOUS MIGUEL ÁNGEL Ampicillin Sodium 1 gm/ Sodium (Chloride) 100 mls @ 200 mls/hr IV Q4H MIGUEL ÁNGEL Last Admin: 11/17/19 16:17 Dose: 200 mls/hr Oxytocin/Lactated Ringer's (Pitocin In Lr 10 Units/1,000 Ml) 10 unit in 1,000 mls @ 12 mls/hr IV TITRATE MIGUEL ÁNGEL; Protocol Last Titration: 11/17/19 18:45 Dose: 500 mls/hr Nalbuphine HCl (Nubain) 10 mg IVPUSH Q2H PRN PRN Reason: Pain Ondansetron HCl (Zofran) 4 mg IVPUSH Q4H PRN PRN Reason: Nausea/Vomiting Sodium Chloride (Saline Flush) 10 ml FLUSH ASDIRECTED PRN PRN Reason: Keep Vein Open
--- NOTE | 2019-11-18 12:10 | PCM48HPAN ---
Post Anesthesia Note - EVALUATION WITHIN 48HRS OF ANESTHETIC Vital Signs in Normal Range: Yes Patient Participated in Evaluation: No (patient discharged prior to rounds) Respiratory Function Stable: Yes Airway Patent: Yes Cardiovascular Function Stable: Yes Hydration Status Stable: Yes Pain Control Satisfactory: Yes Nausea and Vomiting Control Satisfactory: Yes Mental Status Recovered: Yes Vital Signs: Last Vital Signs Temp 36.6 C 11/18/19 08:12 Pulse 78 11/18/19 08:12 Resp 16 11/18/19 08:12 BP 111/71 11/18/19 08:12 Pulse Ox 98 11/18/19 08:12 - COMMENTS/OBSERVATIONS Free Text/Narrative:: No concerns per RN. Epidural functioned satisfactorily.
[2019-11-18 16:45] VITALS: BP 128/79; PULSE 63
== END 2019-11-18 22:03 | disposition home or self-care (01) | DRG 807 ==
LOC: JD.OB 08:11 → JD.OBCHECK 08:11 → JD.OB 11:56 → OBSVTOIN 18:40 → JD.OB 18:45
PROVIDERS: ADMIT Obstetrics & Gynecology; ATTEND Obstetrics & Gynecology
PROC: 10E0XZZ Delivery of Products of Conception, External Approach (ICD-10-PCS; principal; 2019-11-17)
PROC: 10907ZC Drainage of Amniotic Fluid, Therapeutic from Products of Conception, Via Natural or Artificial Opening (ICD-10-PCS; 2019-11-17)
PROC: 3E0R3BZ Introduction of Anesthetic Agent into Spinal Canal, Percutaneous Approach (ICD-10-PCS; 2019-11-17)
DX: O99.824 Streptococcus B carrier state complicating childbirth (principal); Z37.0 Single live birth; Z88.5 Allergy status to narcotic agent; Z79.899 Other long term (current) drug therapy; Z3A.38 38 weeks gestation of pregnancy
CPT/HCPCS: 01967; 36415; 51702; 59025; 59409; 81001; 84112; 85025; 86592; 86850; 86900; 86901; 87086; A9270-GY; J0290; J2590; J3010; J3490; J7050; J7120